=== PATIENT | female | born 1930 | race Caucasian/White ===

== ENCOUNTER → 2016-06-04 | Outpatient (CLI) | payer OTHER, MEDICAID ==
[2016-01-20 09:06] VITALS: BP 133/72
[2016-06-04 11:31] LABS: BASOPHILS # (AUTO) 0.1 X10^3/uL (0.0-0.1); BASOPHILS % (AUTO) 1.6 % (0.2-1.0); EOSINOPHILS # (AUTO) 0.1 x10^3/uL (0.0-0.2); EOSINOPHILS % (AUTO) 1.3 % (0.9-2.9); LYMPHOCYTES % (AUTO) 23.3 % (21.0-51.0); MEAN CORPUSCULAR HEMOGLOBIN 28.3 pg (27.0-34.0); MEAN CORPUSCULAR HGB CONC 33.3 g/dL (33.0-35.0); MONOCYTES # (AUTO) 0.6 x10^3/uL (0.3-0.8); MONOCYTES % (AUTO) 6.8 % (0.0-13.0); NEUTROPHILS # (AUTO) 5.8 x10^3/uL (2.2-4.8); PLATELET COUNT 260 X10^3/uL (150.0-450.0); RED BLOOD COUNT 4.59 X10^6/uL (3.5-5.4); RED CELL DISTRIBUTION WIDTH 14.7 % (11.6-16.5); WHITE BLOOD COUNT 8.7 X10^3/uL (3.6-10.0)
[2016-06-04 11:58] LABS: ALANINE AMINOTRANSFERASE 47 Units/L (12-78); ALBUMIN 3.8 g/dL (3.4-5.0); ALKALINE PHOSPHATASE 148 Units/L (46-116); ASPARTATE AMINO TRANSFERASE 33 Units/L (15-37); BLOOD UREA NITROGEN 16 mg/dL (7-18); CALCIUM 8.9 mg/dL (8.5-10.1); CARBON DIOXIDE 31.1 mmol/L (21-32); CHLORIDE 105 mmol/L (98-107); CHOL/HDL RATIO 3.5 (0.0-5.0); CHOLESTEROL 208 mg/dL (0-200); CREATININE 1.36 mg/dL (0.55-1.02); GLUCOSE 97 mg/dL (65-99); HDL CHOLESTEROL 59 mg/dL (40-60); SODIUM 143 mmol/L (136-145); TRIGLYCERIDES 105 mg/dL (0-150); TSH (3RD GENERATION) 0.093 uIU/mL (0.358-3.74); eGFR BLACK RACES 47 (>60); eGFR NON BLACK RACES 39 (>60)
== END ==
LOC: LAB 10:47
PROVIDERS: ATTEND Obstetrics & Gynecology Obstetrics
DX: E03.8 Other specified hypothyroidism (principal); I10 Essential (primary) hypertension
CPT/HCPCS: 36415; 80053; 80061; 84443; 85025

== ENCOUNTER → 2016-07-26 | Outpatient (CLI) | payer OTHER, MEDICAID ==
[2016-01-20 09:06] VITALS: BP 133/72
[2016-07-26 09:54] LABS: BASOPHILS # (AUTO) 0.1 X10^3/uL (0.0-0.1); BASOPHILS % (AUTO) 0.8 % (0.2-1.0); EOSINOPHILS # (AUTO) 0.2 x10^3/uL (0.0-0.2); EOSINOPHILS % (AUTO) 2.2 % (0.9-2.9); HEMATOCRIT 37.1 % (36.0-47.0); HEMOGLOBIN 12.1 g/dL (12.0-16.0); LYMPHOCYTES # (AUTO) 1.9 X10^3/uL (1.3-2.9); LYMPHOCYTES % (AUTO) 21.7 % (21.0-51.0); MEAN CORPUSCULAR HEMOGLOBIN 27.6 pg (27.0-34.0); MEAN CORPUSCULAR HGB CONC 32.7 g/dL (33.0-35.0); MEAN CORPUSCULAR VOLUME 84.7 fL (80.0-100.0); MEAN PLATELET VOLUME 7.7 fL (7.4-11.0); MONOCYTES # (AUTO) 0.7 x10^3/uL (0.3-0.8); MONOCYTES % (AUTO) 8.2 % (0.0-13.0); NEUTROPHILS # (AUTO) 5.9 x10^3/uL (2.2-4.8); NEUTROPHILS % (AUTO) 67.1 % (42.0-75.0); PLATELET COUNT 277 X10^3/uL (150.0-450.0); RED BLOOD COUNT 4.38 X10^6/uL (3.5-5.4); RED CELL DISTRIBUTION WIDTH 15.3 % (11.6-16.5); WHITE BLOOD COUNT 8.8 X10^3/uL (3.6-10.0)
[2016-07-26 10:30] LABS: ALANINE AMINOTRANSFERASE 40 Units/L (12-78); ALBUMIN 3.4 g/dL (3.4-5.0); ALKALINE PHOSPHATASE 143 Units/L (46-116); ASPARTATE AMINO TRANSFERASE 28 Units/L (15-37); BLOOD UREA NITROGEN 17 mg/dL (7-18); CALCIUM 8.9 mg/dL (8.5-10.1); CARBON DIOXIDE 29.6 mmol/L (21-32); CHLORIDE 105 mmol/L (98-107); CHOL/HDL RATIO 4.8 (0.0-5.0); CHOLESTEROL 247 mg/dL (0-200); CREATININE 1.39 mg/dL (0.55-1.02); GLUCOSE 91 mg/dL (65-99); HDL CHOLESTEROL 52 mg/dL (40-60); SODIUM 142 mmol/L (136-145); TOTAL PROTEIN 7.4 g/dL (6.4-8.2); TRIGLYCERIDES 136 mg/dL (0-150); eGFR BLACK RACES 46 (>60); eGFR NON BLACK RACES 38 (>60)
[2016-07-26 18:08] LABS: FREE T4 (FREE THYROXINE) 1.74 ng/dL (0.76-1.46)
== END ==
LOC: LAB 09:25
PROVIDERS: ATTEND Obstetrics & Gynecology Obstetrics
DX: E03.8 Other specified hypothyroidism (principal); I10 Essential (primary) hypertension; I48.91 Unspecified atrial fibrillation
CPT/HCPCS: 36415; 80053; 80061; 84439; 84443; 84481; 85025

== ENCOUNTER 2016-08-11 09:25 | Emergency (ER) | payer OTHER, MEDICAID ==
[2016-08-11 09:29] VITALS: BMI 21.9
--- NOTE | 2016-08-11 09:51 | DR.GENAD ---
HPI - PCP Primary Care Physician: BISI Chamberlain HPI Comment HPI Comment: HAD GI BLEED PREVIOUSLY. NO HISTORY OF HEMORRHOIDS. - Complaint/Symptoms Chief Complaint Doctors Comments: GI BLEEDING TODAY WHEN PATIENT BP, BLEED IN STOOL. TARRY STOOL. Chief Complaint:: PT. C/O WEAKNESS AND RECTAL BLEEDING. PT. HAD A BOWEL MOVEMENT THIS MORNING WHICH SHE SAYS WAS DARK AND TARRY AT FIRST BUT THEN BECAME BRIGHT RED IN COLOR. - Nurses notes reviewed Nurses Notes Review: Yes - Source History Provided: Patient - Mode of Arrival Mode of Arrival: Wheelchair - Timing Onset of Chief Complaint: 08/11/16 Came on: Suddenly - Duration Duration: Constant Duration: Hours PMH - PMH Past Medical History: Yes Past Medical History: Diabetes, Hypertension, Hyperthyroidism Past Surgical History: Yes Surgical History: Ortho Surgery - Family History History of Family Medical Conditions: Yes Family Medical History: Diabetes Mellitus - Social History Does patient currently use any type of tobacco product: No Have you used tobacco products in the last 12 months: No Type of Tobacco Use: None Does any household member use tobacco: No Alcohol Use: None Do you use any recreational Drugs:: No Lives With: Family Lives Where: Home - infectious screening In the last 2 months have you had wt loss of >10#?: NO Have you had fever, night sweats or hemotysis?: No Have you traveled outside the country in the last 6 months?: No Isolation: Standard ROS - Review of Systems Constitutional: No Symptoms Reported. negative: Chills, Fever, Weakness, Fatigue, Loss of Appetite Eyes: No Symptoms Reported. negative: Eye Pain, Blurred Vision, Discharge ENTM: No Symptoms Reported Respiratoy: No Symptoms Reported Cardiovascular: No Symptoms Reported Gastrointestinal/Abdominal: No Symptoms Reported Genitourinary: negative: Hematuria Neurological: Weakness Musculoskeletal: Muscle Pain Integumentary: Dryness Hematologic/Lymphatic: No Symptoms Reported Endocrine: negative: Flushing, Increased Thirst All Other Systems: Reviewed and Negative PE - Vital Signs Vitals: Temperature 97.6 F Pulse Rate 67 Respiratory Rate 17 Blood Pressure [Right Arm] 133/72 Blood Pressure [Left Arm] 148/69 Blood Pressure 152/80 O2 Sat by Pulse Oximetry 96 - General Limitations: No Limitations General Appearance: Alert - Head Head Exam: Normal Inspection - Eyes Eye exam: Normal Appearance - ENT ENT Exam: Normal Exam External Ear Exam: Normal External Inspection TM/Canal Exam: Bilateral Normal Nose Exam: Normal Nose Exam, Sinus Tenderness Mouth Exam: Normal Inspection Throat Exam: Normal Inspection MDM - Additional Information Additional Information Obtained From: Family - Differential Diagnosis Differential Diagnosis: FRACTURE, SRAIN, STRAIN CONTUSION, FRACTURE. Course - Treatment Treatment: SEE ORDERS - Education/Counseling Education/Counseling: Patient, Education Educated On: Treatment ROR - Labs Reviewed Laboratory Results Reviewed?: Yes Result Diagrams: 08/12/16 04:30 08/12/16 04:30 Laboratory: WBC 7.4 X10^3/uL (3.6-10.0) 08/11/16 10:10 RBC 4.21 X10^6/uL (3.5-5.4) 08/11/16 10:10 Hgb 11.8 g/dL (12.0-16.0) L 08/11/16 10:10 Hct 35.6 % (36.0-47.0) L 08/11/16 10:10 MCV 84.6 fL (80.0-100.0) 08/11/16 10:10 MCH 28.0 pg (27.0-34.0) 08/11/16 10:10 MCHC 33.2 g/dL (33.0-35.0) 08/11/16 10:10 RDW 15.4 % (11.6-16.5) 08/11/16 10:10 Plt Count 247 X10^3/uL (150.0-450.0) 08/11/16 10:10 MPV 8.1 fL (7.4-11.0) 08/11/16 10:10 Neut % 65.1 % (42.0-75.0) 08/11/16 10:10 Lymph % 24.5 % (21.0-51.0) 08/11/16 10:10 [place] % 7.2 % (0.0-13.0) 08/11/16 10:10 Eos % 2.0 % (0.9-2.9) 08/11/16 10:10 Baso % 1.2 % (0.2-1.0) H 08/11/16 10:10 Neut # 4.8 x10^3/uL (2.2-4.8) 08/11/16 10:10 Lymph # 1.8 X10^3/uL (1.3-2.9) 08/11/16 10:10 [place] # 0.5 x10^3/uL (0.3-0.8) 08/11/16 10:10 Eos # 0.1 x10^3/uL (0.0-0.2) 08/11/16 10:10 Baso # 0.1 X10^3/uL (0.0-0.1) 08/11/16 10:10 Absolute Nucleated RBC 0.1 /100WBC 08/11/16 10:10 INR Target Range - 08/11/16 10:10 INR 1.07 (0.8-1.3) 08/11/16 10:10 PTT 31.5 SECONDS (22.9-36.5) 08/11/16 10:10 PTT Comment - 08/11/16 10:10 Sodium 142 mmol/L (136-145) 08/11/16 10:10 Corrected Sodium TNP 08/11/16 10:10 Potassium 4.4 mmol/L (3.5-5.1) 08/11/16 10:10 Chloride 106 mmol/L (98-107) 08/11/16 10:10 Carbon Dioxide 26.5 mmol/L (21-32) 08/11/16 10:10 BUN 19 mg/dL (7-18) H 08/11/16 10:10 Creatinine 1.23 mg/dL (0.55-1.02) H 08/11/16 10:10 Est GFR (MDRD) Af Amer 53 (>60) L 08/11/16 10:10 Est GFR (MDRD) Non-Af 44 (>60) L 08/11/16 10:10 Glucose 94 mg/dL (65-99) 08/11/16 10:10 Calcium 8.7 mg/dL (8.5-10.1) 08/11/16 10:10 Corrected Calcium 9.3 mg/dL (8.5-10.1) 08/11/16 10:10 Total Bilirubin 0.40 mg/dL (0.2-1.0) 08/11/16 10:10 AST 29 Units/L (15-37) 08/11/16 10:10 ALT 51 Units/L (12-78) 08/11/16 10:10 Alkaline Phosphatase 142 Units/L (46-116) H 08/11/16 10:10 Total Protein 7.2 g/dL (6.4-8.2) 08/11/16 10:10 Albumin 3.3 g/dL (3.4-5.0) L 08/11/16 10:10 Globulin 3.9 g/dL (2.5-4.5) 08/11/16 10:10 Albumin/Globulin Ratio 0.8 Ratio (1.1-2.1) L 08/11/16 10:10 Stool Description Fob tube 08/11/16 10:32 Stl Occult Blood (IFOB) Positive (NEGATIVE) A 08/11/16 10:32 - XRAY XRAY Interpreted by: Radiologist XRAY Findings: REPORT NOTED AND DISCUSS WITH PATIENT. - Diagnosis Discharge Problem: GI bleeding Qualifiers: GI bleed type/associated pathology: unspecified gastrointestinal hemorrhage type Qualified Code(s): K92.2 - Gastrointestinal hemorrhage, unspecified - Discharge Plan Disposition: ADMITTED INPATIENT Condition: Stable - Follow ups/Referrals - Instructions
[2016-08-11] MEDS ORDERED: NS 500 ML IV 500 ML IV ONE (09:52)
[2016-08-11] MEDS: NS 1000 ML 1,000 ML IV SCH ×2 (10:13→22:28)
[2016-08-11 10:40] LABS: BASOPHILS # (AUTO) 0.1 X10^3/uL (0.0-0.1); BASOPHILS % (AUTO) 1.2 % (0.2-1.0); EOSINOPHILS # (AUTO) 0.1 x10^3/uL (0.0-0.2); HEMATOCRIT 35.6 % (36.0-47.0); HEMOGLOBIN 11.8 g/dL (12.0-16.0); LYMPHOCYTES # (AUTO) 1.8 X10^3/uL (1.3-2.9); LYMPHOCYTES % (AUTO) 24.5 % (21.0-51.0); MEAN CORPUSCULAR HGB CONC 33.2 g/dL (33.0-35.0); MEAN CORPUSCULAR VOLUME 84.6 fL (80.0-100.0); MEAN PLATELET VOLUME 8.1 fL (7.4-11.0); MONOCYTES # (AUTO) 0.5 x10^3/uL (0.3-0.8); MONOCYTES % (AUTO) 7.2 % (0.0-13.0); NEUTROPHILS # (AUTO) 4.8 x10^3/uL (2.2-4.8); NEUTROPHILS % (AUTO) 65.1 % (42.0-75.0); PLATELET COUNT 247 X10^3/uL (150.0-450.0); RED BLOOD COUNT 4.21 X10^6/uL (3.5-5.4); RED CELL DISTRIBUTION WIDTH 15.4 % (11.6-16.5); WHITE BLOOD COUNT 7.4 X10^3/uL (3.6-10.0)
[2016-08-11 10:54] LABS: ALANINE AMINOTRANSFERASE 51 Units/L (12-78); ALBUMIN 3.3 g/dL (3.4-5.0); ALKALINE PHOSPHATASE 142 Units/L (46-116); ASPARTATE AMINO TRANSFERASE 29 Units/L (15-37); BLOOD UREA NITROGEN 19 mg/dL (7-18); CALCIUM 8.7 mg/dL (8.5-10.1); CARBON DIOXIDE 26.5 mmol/L (21-32); CHLORIDE 106 mmol/L (98-107); COR CA(FOR HYPOALB) 9.3 mg/dL (8.5-10.1); CREATININE 1.23 mg/dL (0.55-1.02); GLUCOSE 94 mg/dL (65-99); SODIUM 142 mmol/L (136-145); TOTAL PROTEIN 7.2 g/dL (6.4-8.2); eGFR BLACK RACES 53 (>60); eGFR NON BLACK RACES 44 (>60)
--- NOTE | 2016-08-11 11:52 | CT ---
HISTORY: Abdominal pain and rectal bleeding Study: CT abdomen and pelvis without contrast Comparison: January 19, 2016 Technique: Multiple axial images of the abdomen and pelvis were obtained from the lung bases to the pubic symph ysis without the administration of IV contrast. Sagittal and coronal reformations were provided. Findings: Emphysematous changes and interstitial lung disease is visualized at the lung bases. There is a mi ldly increased attenuation of the liver parenchyma up to 100 Hounsfield units without focal liver ma ss. The spleen and pancreas and adrenal glands are unremarkable. There is an unchanged 5 millimeter calculus in the mid pole of the left kidney with adjacent scar. There is no hydronephrosis. There i s an approximately 3.25 centimeter cyst dorsally in the upper pole of the left kidney. There is a 3. 6 centimeter cyst ventrally from the lower pole of the right kidney. .. The gallbladder is mildly di stended with increased attenuation dependently. There is no biliary dilatation.. No significant mes enteric lymphadenopathy or stranding can be observed. No free fluid or free air is seen within the abdomen. The uterus appears to be absent. No bowel wall thickening or bowel dilatation is present. There is severe sigmoid diverticulosis without inflammatory changes demonstrated. There is artifact from a left hip prosthesis.. The urinary bladder is grossly unremarkable. The bony structures are grossly intact. IMPRESSION: 1. Abnormal attenuation of the liver compatible with hemochromatosis. This also may be caused by am iodarone therapy. 2. Sludge or tiny gallstones dependently in the gallbladder 3. Sigmoid diverticulosis 4. Renal cysts and left renal calculus without hydronephrosis Reported By:
[2016-08-11] MEDS ORDERED: LASIX PO PRN (12:24)
[2016-08-11 12:25] LABS: AMYLASE 55 Units/L (25-115); LIPASE 158 Units/L (73-393)
[2016-08-11] MEDS: PROTONIX INJ 40 MG VIAL 80 MG in NS 100 ML IV 80 ML IV SCH ×2 (12:28→22:21)
[2016-08-11] MEDS ORDERED: PROTONIX INJ 40 MG VIAL ONE (12:31)
[2016-08-11] MEDS ORDERED: NS 100 ML IV 100 ML IV ONE (12:31)
[2016-08-11 14:06] LABS: HEMATOCRIT 33.2 % (36.0-47.0); HEMOGLOBIN 10.9 g/dL (12.0-16.0)
[2016-08-11 18:30] LABS: HEMATOCRIT 35.3 % (36.0-47.0); HEMOGLOBIN 11.5 g/dL (12.0-16.0)
[2016-08-11 22:23] LABS: HEMATOCRIT 30.8 % (36.0-47.0); HEMOGLOBIN 10.3 g/dL (12.0-16.0)
[2016-08-12] MEDS: NS 1000 ML 1,000 ML IV SCH ×2 (00:33→20:05)
[2016-08-12 02:14] LABS: HEMATOCRIT 31.9 % (36.0-47.0); HEMOGLOBIN 10.6 g/dL (12.0-16.0)
[2016-08-12] MEDS: PROTONIX INJ 40 MG VIAL 80 MG in NS 100 ML IV 80 ML IV SCH ×4 (05:32→20:08)
[2016-08-12 06:10] LABS: BASOPHILS # (AUTO) 0.1 X10^3/uL (0.0-0.1); BASOPHILS % (AUTO) 0.6 % (0.2-1.0); EOSINOPHILS # (AUTO) 0.2 x10^3/uL (0.0-0.2); HEMATOCRIT 31.9 % (36.0-47.0); HEMOGLOBIN 10.7 g/dL (12.0-16.0); LYMPHOCYTES # (AUTO) 1.9 X10^3/uL (1.3-2.9); MEAN CORPUSCULAR HEMOGLOBIN 28.3 pg (27.0-34.0); MEAN CORPUSCULAR HGB CONC 33.5 g/dL (33.0-35.0); MEAN CORPUSCULAR VOLUME 84.4 fL (80.0-100.0); MEAN PLATELET VOLUME 8.1 fL (7.4-11.0); MONOCYTES # (AUTO) 0.6 x10^3/uL (0.3-0.8); MONOCYTES % (AUTO) 7.5 % (0.0-13.0); NEUTROPHILS # (AUTO) 5.7 x10^3/uL (2.2-4.8); NEUTROPHILS % (AUTO) 66.9 % (42.0-75.0); PLATELET COUNT 231 X10^3/uL (150.0-450.0); RED BLOOD COUNT 3.78 X10^6/uL (3.5-5.4); RED CELL DISTRIBUTION WIDTH 15.3 % (11.6-16.5); WHITE BLOOD COUNT 8.5 X10^3/uL (3.6-10.0)
[2016-08-12 06:21] LABS: ALANINE AMINOTRANSFERASE 42 Units/L (12-78); ALBUMIN 2.8 g/dL (3.4-5.0); ALKALINE PHOSPHATASE 119 Units/L (46-116); ASPARTATE AMINO TRANSFERASE 25 Units/L (15-37); BLOOD UREA NITROGEN 12 mg/dL (7-18); CALCIUM 8.2 mg/dL (8.5-10.1); CHLORIDE 110 mmol/L (98-107); CHOL/HDL RATIO 4.4 (0.0-5.0); CHOLESTEROL 201 mg/dL (0-200); COR CA(FOR HYPOALB) 9.2 mg/dL (8.5-10.1); CREATININE 1.02 mg/dL (0.55-1.02); GLUCOSE 88 mg/dL (65-99); HDL CHOLESTEROL 46 mg/dL (40-60); SODIUM 145 mmol/L (136-145); TOTAL PROTEIN 6.2 g/dL (6.4-8.2); TRIGLYCERIDES 112 mg/dL (0-150); eGFR BLACK RACES > 60 (>60); eGFR NON BLACK RACES 54 (>60)
[2016-08-12] MEDS: SYNTHROID 150 mcg TAB PO SCH (09:05)
[2016-08-12] MEDS: HYZAAR 50/12.5 MG PO SCH (09:06)
[2016-08-12] MEDS: CARDIZEM CD 240 MG PO SCH (09:06)
[2016-08-12] MEDS: CORDARONE TAB 200 MG PO SCH (09:08)
[2016-08-12] MEDS ORDERED: D5 LR 1000 ML 1,000 ML IV ONE (11:27)
[2016-08-12] MEDS ORDERED: DIPRIVAN VIAL 20 ML ONE (11:51)
[2016-08-12] MEDS ORDERED: ANUCORT-HC SUPP PR PRN (12:05)
[2016-08-13] MEDS: PROTONIX INJ 40 MG VIAL 80 MG in NS 100 ML IV 80 ML IV SCH (04:18)
[2016-08-13 05:50] LABS: ALANINE AMINOTRANSFERASE 39 Units/L (12-78); ALBUMIN 2.7 g/dL (3.4-5.0); ALKALINE PHOSPHATASE 121 Units/L (46-116); ASPARTATE AMINO TRANSFERASE 25 Units/L (15-37); BLOOD UREA NITROGEN 7 mg/dL (7-18); CALCIUM 8.7 mg/dL (8.5-10.1); CARBON DIOXIDE 26.7 mmol/L (21-32); CHLORIDE 107 mmol/L (98-107); COR CA(FOR HYPOALB) 9.7 mg/dL (8.5-10.1); CREATININE 0.95 mg/dL (0.55-1.02); GLUCOSE 84 mg/dL (65-99); SODIUM 143 mmol/L (136-145); TOTAL PROTEIN 6.2 g/dL (6.4-8.2); eGFR BLACK RACES > 60 (>60); eGFR NON BLACK RACES 59 (>60)
[2016-08-13 06:13] LABS: BASOPHILS % (AUTO) 0.6 % (0.2-1.0); EOSINOPHILS # (AUTO) 0.3 x10^3/uL (0.0-0.2); EOSINOPHILS % (AUTO) 3.6 % (0.9-2.9); HEMATOCRIT 33.7 % (36.0-47.0); HEMOGLOBIN 11.1 g/dL (12.0-16.0); LYMPHOCYTES % (AUTO) 24.4 % (21.0-51.0); MEAN CORPUSCULAR HEMOGLOBIN 27.8 pg (27.0-34.0); MEAN CORPUSCULAR HGB CONC 32.9 g/dL (33.0-35.0); MEAN CORPUSCULAR VOLUME 84.4 fL (80.0-100.0); MEAN PLATELET VOLUME 8.2 fL (7.4-11.0); MONOCYTES # (AUTO) 0.7 x10^3/uL (0.3-0.8); MONOCYTES % (AUTO) 8.2 % (0.0-13.0); NEUTROPHILS # (AUTO) 5.1 x10^3/uL (2.2-4.8); NEUTROPHILS % (AUTO) 63.2 % (42.0-75.0); PLATELET COUNT 236 X10^3/uL (150.0-450.0); RED BLOOD COUNT 3.99 X10^6/uL (3.5-5.4); RED CELL DISTRIBUTION WIDTH 15.1 % (11.6-16.5)
[2016-08-13] MEDS ORDERED: ANUCORT-HC SUPP PR SCH (09:00)
[2016-08-13] MEDS: SYNTHROID 150 mcg TAB PO SCH (09:13)
[2016-08-13] MEDS: NS 1000 ML 1,000 ML IV SCH (09:13)
[2016-08-13] MEDS: HYZAAR 50/12.5 MG PO SCH (09:13)
[2016-08-13] MEDS: CARDIZEM CD 240 MG PO SCH (09:13)
[2016-08-13] MEDS: CORDARONE TAB 200 MG PO SCH (09:14)
[2016-08-13 12:20] VITALS: BP 157/82
== END 2016-08-13 12:35 | disposition home or self-care (01) ==
LOC: ER 09:40 → MED/SURG 12:07
PROVIDERS: ADMIT Obstetrics & Gynecology Obstetrics; ATTEND Obstetrics & Gynecology Obstetrics
PROC: 0DJ08ZZ Inspection of Upper Intestinal Tract, Via Natural or Artificial Opening Endoscopic (ICD-10-PCS; principal; 2016-08-12 14:30)
DX: K92.2 Gastrointestinal hemorrhage, unspecified (principal); K29.60 Other gastritis without bleeding; K22.2 Esophageal obstruction; R94.4 Abnormal results of kidney function studies; K21.9 Gastro-esophageal reflux disease without esophagitis; I48.91 Unspecified atrial fibrillation; Z79.01 Long term (current) use of anticoagulants; R94.31 Abnormal electrocardiogram [ECG] [EKG]; E11.65 Type 2 diabetes mellitus with hyperglycemia; I10 Essential (primary) hypertension; E03.8 Other specified hypothyroidism; R26.89 Other abnormalities of gait and mobility; D64.89 Other specified anemias
CPT/HCPCS: 36415; 74176; 80053; 80061; 82150; 82270; 82728; 83690; 85014; 85018; 85025; 85610; 85730; 86850; 86900; 86901; 93005; 93010; 94760; 96365; 96367; 96374; 99100; 99282; 99284; A4222; C9113; A4217; G0378; J3490; J7120

== ENCOUNTER → 2016-08-27 | Outpatient (CLI) | payer OTHER, MEDICAID ==
[2016-08-13 12:20] VITALS: BP 157/82
[2016-08-27 09:59] LABS: ALANINE AMINOTRANSFERASE 43 Units/L (12-78); ALBUMIN 3.2 g/dL (3.4-5.0); ALKALINE PHOSPHATASE 134 Units/L (46-116); ASPARTATE AMINO TRANSFERASE 28 Units/L (15-37); BLOOD UREA NITROGEN 18 mg/dL (7-18); CARBON DIOXIDE 29.8 mmol/L (21-32); CHLORIDE 105 mmol/L (98-107); COR CA(FOR HYPOALB) 9.6 mg/dL (8.5-10.1); CREATININE 1.23 mg/dL (0.55-1.02); GLUCOSE 81 mg/dL (65-99); SODIUM 142 mmol/L (136-145); TOTAL PROTEIN 7.3 g/dL (6.4-8.2); TSH (3RD GENERATION) 0.452 uIU/mL (0.358-3.74); eGFR BLACK RACES 53 (>60); eGFR NON BLACK RACES 44 (>60)
== END ==
LOC: LAB 09:04
PROVIDERS: ATTEND Internal Medicine Cardiovascular Disease
DX: I48.91 Unspecified atrial fibrillation (principal)
CPT/HCPCS: 36415; 80053; 84443

== ENCOUNTER 2016-11-06 15:00 | Emergency (ER) | payer OTHER, MEDICAID ==
[2016-11-06 15:06] VITALS: BP 146/82; BMI 22.9
[2016-11-06] MEDS ORDERED: ZOFRAN INJ 4 MG VIAL IM ONE (15:18)
[2016-11-06] MEDS ORDERED: MORPHINE SULFATE INJ 4 MG IM ONE (15:18)
--- NOTE | 2016-11-06 15:18 | DR.GENAD ---
HPI - PCP Primary Care Physician: BISI - HPI Comment HPI Comment: PATIENT HAVING SEVERE PAIN. TD NOT UTD. - Complaint/Symptoms Chief Complaint Doctors Comments: FELL AT HOME COMING OUT OF BATH TUB TODAY BEFORE COMING TO ED. LOW BACK PAIN, LEFT ARM AND FOREARM PAIN WITH LACERATION.ON FOREARM. Chief Complaint:: PT STATES SHE FELL GETTING OUT OF THE BATH TUB. PT C/O LT FOREARM AND LOWER BACK PAIN. NOTED PT'S ARM TO BE SWOLLEN. - Nurses notes reviewed Nurses Notes Review: Yes - Source History Provided: Patient - Mode of Arrival Mode of Arrival: Wheelchair - Timing Onset of Chief Complaint: 11/06/16 Came on: Suddenly - Duration Duration: Constant Duration: Days - Severity Severity: Moderate PMH - PMH Past Medical History: Yes Past Medical History: Diabetes, Hypertension, Hyperthyroidism Past Surgical History: Yes Surgical History: Ortho Surgery - Family History History of Family Medical Conditions: Yes Family Medical History: Diabetes Mellitus - Social History Does any household member use tobacco: No Alcohol Use: None Do you use any recreational Drugs:: No Lives With: Alone Lives Where: Home - infectious screening In the last 2 months have you had wt loss of >10#?: NO Have you had fever, night sweats or hemotysis?: No Have you traveled outside the country in the last 6 months?: No Isolation: Standard ROS - Review of Systems Constitutional: No Symptoms Reported Eyes: No Symptoms Reported ENTM: No Symptoms Reported Respiratoy: No Symptoms Reported Cardiovascular: No Symptoms Reported Gastrointestinal/Abdominal: No Symptoms Reported Genitourinary: No Symptoms Reported Neurological: No Symptoms Reported Musculoskeletal: Back Pain, Joint Pain, Joint Swelling, Muscle Pain, Left, Back , Shoulder Integumentary: Change in Color, Other (LACERATION LEFT FOREARM.) Hematologic/Lymphatic: No Symptoms Reported Endocrine: No Symptoms Reported All Other Systems: Reviewed and Negative PE - Vital Signs Vitals: Temperature 98.3 F Pulse Rate 83 Respiratory Rate 18 Blood Pressure [Right Arm] 169/79 Blood Pressure [Left Arm] 157/82 Blood Pressure 146/82 O2 Sat by Pulse Oximetry 98 - General Limitations: No Limitations General Appearance: Alert - Head Head Exam: Normal Inspection - Eyes Eye exam: Normal Appearance - ENT ENT Exam: Normal External Ear Exam External Ear Exam: Normal External Inspection TM/Canal Exam: Bilateral Normal Nose Exam: Normal Nose Exam Mouth Exam: Normal Inspection Throat Exam: Normal Inspection - Neck Neck Exam: Normal Inspection - Chest Chest Inspection: Symmetric Chest Wall Rise - Respiratory Respiratory Exam: Normal Lung Sounds Bilat Respiratory Exam: Bilateral Rhonchi, Lower Rhonchi - Cardiovascular Cardiovascular Exam: Regular Rate, Normal Rhythm, Normal Heart Sounds - Abdominal Exam Abdominal Exam: Normal Bowel Sounds, Soft. negative: Tenderness - Extremities Extremities Exam: Tenderness (LEFT ARM AND FOREARM.), Joint Swelling (LT WRIST AND ELBOW.) - Back Back Exam: Vertebral Tenderness (LOWER BACK) - Neurologic Neurological Exam: Alert, Oriented X3 - Psychiatric Psychiatric Exam: Anxious - Skin Skin Exam: Erythema, Other (3CM LAC LT FOREARM.) MDM - Additional Information Additional Information Obtained From: Old Records (FRACTURE LT FOREARM, SONTUSION LT FORARM AND LT ARM, STRAIN LOWER BACK.), Family Course - Treatment Treatment: SEE ORDERS. IM MORPHIN ANR ZOFRAN IM IN ED. PAIN IMPROVING. - Consultation Consultation Comments: DISCUSS PATIENT WITH DR. SMITH. HE WILL SEE HER IN THE OFFICE TUESDAY. - Education/Counseling Education/Counseling: Patient, Family, Education Educated On: Treatment, Diagnosis, Needs for Follow Up ROR - XRAY XRAY Interpreted by: Radiologist XRAY Findings: REPORT DISCUSS WITH PATIENT AND HER FAMILY. Procedures - Laceration/Wound Repair Left Wrist Wound Length (cm): 3 Wound's Depth, Shape: Linear Wound Explored: clean Irrigated w/ Saline (ccs): 500 Anesthesia: 1% Lidocaine Volume Anesthetic (ccs): 2 Wound Repaired With: sutures Suture Size/Type: 4:0, [place] Number of Sutures: 7 Layer Closure?: No Sterile Dressing Applied?: Yes Splint Applied?: Yes Sling Applied?: Yes - Diagnosis Discharge Problem: Open fracture of left forearm Qualifiers: Encounter type: initial encounter Open fracture type: open type I or II Qualified Code(s): S52.92XB - Unspecified fracture of left forearm, initial encounter for open fracture type I or II Lumbar back pain Qualifiers: Chronicity: acute Back pain laterality: left Sciatica presence: without sciatica Qualified Code(s): M54.5 - Low back pain Contusion of left arm Qualifiers: Encounter type: initial encounter Qualified Code(s): S40.022A - Contusion of left upper arm, initial encounter - Discharge Plan Disposition: 01 HOME, SELF-CARE Condition: Stable Prescriptions: Oxycodone/Acet 5 mg/325 mg [PERCOCET 5/325 MG *] 1 tab PO Q8H PRN #12 tab PRN Reason: Severe Pain - Follow ups/Referrals Follow ups/Referrals: SEBASTIEN MATHEWS [Primary Care Provider] - 3 days RAMY SMITH [STAFF PHYSICIAN] - 11/08/16 - Instructions Instructions: Forearm Fracture With Rehab-SportsMed, Back Pain, Adult, Easy-to- Read, Laceration Care, Adult, [id number], Low Back Strain With Rehab-SportsMed Additional Instructions: RETURN TO ED IF WORSE.
[2016-11-06] MEDS ORDERED: MORPHINE SULFATE INJ 4 MG ONE (15:32)
[2016-11-06] MEDS ORDERED: ZOFRAN INJ 4 MG VIAL ONE (15:32)
--- NOTE | 2016-11-06 16:46 | RAD ---
HISTORY: Left arm pain. Comparison: None. EXAM: AP and lateral views of the left humerus. Findings: The exam demonstrates diffuse osteopenia of the left humerus without evidence for a displaced humeral fracture or humeral head dislocation on this examination. 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 The AC joint is intact without widening or separation. No destructive lytic bony lesion o r process is evident on the exam. Impression: Grossly negative humeral radiographic exam. Reported By:
--- NOTE | 2016-11-06 16:48 | RAD ---
History: Left arm pain. Distal ulnar fracture. Exam: Two view series of the left forearm bones demonstrates a complete, transverse, left distal ulna r diaphyseal fracture with diffuse adjacent soft tissue swelling edema observed. The DRUJ is intact. No elbow dislocation is seen. 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 There is advanced/severe 1st CMC joint DJD also observed. No o ther fracture or other acute bony injury is identified. Impression: Transverse, complete, left distal ulnar diaphyseal fracture. Reported By:
--- NOTE | 2016-11-06 17:03 | CT ---
HISTORY: Status post fall with low back pain Study: CT lumbar spine without contrast Comparison: August 11, 2016 Technique: Multiple axial images of the lumbar spine were obtained from the thoracolumbar junction t o the sacrum without the administration of IV contrast. Sagittal and coronal reformats were performe d and reviewed. AEC was utilized. Findings: No acute cortical disruption is identified. There is preservation of vertebral body height other than an incidental chronic Schmorl node along the superior endplate of L3. There is multilevel discogenic degenerative disease and facet arthropathy with grade 1 retrolisthesis of L1 on L2 and anterolisthes is of L4 on L5. Interspinous facet DJD is noted as well. There is mild dextroscoliosis. There is gene ralized osteopenia without a focal destructive osseous lesion. There is a sclerotic lesion along the right L2 vertebral body favored to represent a benign bone island in the absence of known malignancy. There is basilar pulmonary interstitial thickening. Colonic diverticulosis is noted. There is diffuse aortic atherosclerosis. Bilateral renal cysts are noted. There is left renal cortical nephrocalcinos is. There are equivocal stones versus sludge within the gallbladder. The liver is again noted to be h yperdense with differential considerations as previously described. A cardiac pacing device is noted. IMPRESSION: Chronic changes as above without acute radiographic abnormality. Reported By:
[2016-11-06] MEDS ORDERED: STERILE WATER IRRIGATION IR ONE (18:07)
[2016-11-06] MEDS ORDERED: ADACEL TDaP IM ONE ×2 (18:49→18:50)
[2016-11-06] MEDS ORDERED: NEOSPORIN OINT ONE (18:52)
== END 2016-11-06 19:58 | disposition home or self-care (01) ==
LOC: ER 15:38
PROC: 0XQH0ZZ Repair Left Wrist Region, Open Approach (ICD-10-PCS; principal; 2016-11-06)
DX: S52.92XB Unspecified fracture of left forearm, initial encounter for open fracture type I or II (principal); S51.812A Laceration without foreign body of left forearm, initial encounter; S40.022A Contusion of left upper arm, initial encounter; M54.5 Low back pain; W19.XXXA Unspecified fall, initial encounter; Y92.009 Unspecified place in unspecified non-institutional (private) residence as the place of occurrence of the external cause
CPT/HCPCS: 12002; 72131; 73060; 73090; 90471; 96372; 99283; A4217; J2270; J2405

== ENCOUNTER → 2016-11-08 | Outpatient (CLI) | payer OTHER, MEDICAID ==
[2016-11-06 15:06] VITALS: BP 146/82
[2016-11-08 16:30] LABS: BASOPHILS # (AUTO) 0.1 X10^3/uL (0.0-0.1); EOSINOPHILS # (AUTO) 0.2 x10^3/uL (0.0-0.2); HEMATOCRIT 33.9 % (36.0-47.0); HEMOGLOBIN 11.2 g/dL (12.0-16.0); LYMPHOCYTES # (AUTO) 1.5 X10^3/uL (1.3-2.9); LYMPHOCYTES % (AUTO) 19.2 % (21.0-51.0); MEAN CORPUSCULAR HEMOGLOBIN 28.2 pg (27.0-34.0); MEAN CORPUSCULAR HGB CONC 33.2 g/dL (33.0-35.0); MEAN CORPUSCULAR VOLUME 84.9 fL (80.0-100.0); MEAN PLATELET VOLUME 7.8 fL (7.4-11.0); MONOCYTES # (AUTO) 0.7 x10^3/uL (0.3-0.8); MONOCYTES % (AUTO) 8.5 % (0.0-13.0); NEUTROPHILS # (AUTO) 5.4 x10^3/uL (2.2-4.8); NEUTROPHILS % (AUTO) 68.3 % (42.0-75.0); PLATELET COUNT 277 X10^3/uL (150.0-450.0); RED BLOOD COUNT 3.99 X10^6/uL (3.5-5.4); RED CELL DISTRIBUTION WIDTH 15.6 % (11.6-16.5); WHITE BLOOD COUNT 7.9 X10^3/uL (3.6-10.0)
[2016-11-08 16:48] LABS: ALANINE AMINOTRANSFERASE 38 Units/L (12-78); ALKALINE PHOSPHATASE 141 Units/L (46-116); ASPARTATE AMINO TRANSFERASE 27 Units/L (15-37); BLOOD UREA NITROGEN 18 mg/dL (7-18); CALCIUM 8.6 mg/dL (8.5-10.1); CHLORIDE 107 mmol/L (98-107); COR CA(FOR HYPOALB) 9.4 mg/dL (8.5-10.1); CREATININE 1.35 mg/dL (0.55-1.02); GLUCOSE 99 mg/dL (65-99); SODIUM 141 mmol/L (136-145); TOTAL PROTEIN 6.6 g/dL (6.4-8.2); eGFR BLACK RACES 48 (>60); eGFR NON BLACK RACES 39 (>60)
[2016-11-08 17:18] LABS: ERYTHROCYTE SEDIMENTATION RATE 47 MM/HOUR (0-20)
== END | disposition home or self-care (01) | DRG 951 ==
LOC: LAB 15:58
PROVIDERS: ATTEND Orthopaedic Surgery
DX: Z01.818 Encounter for other preprocedural examination (principal); S52.209B Unspecified fracture of shaft of unspecified ulna, initial encounter for open fracture type I or II; W19.XXXA Unspecified fall, initial encounter
CPT/HCPCS: 36415; 80053; 85025; 85652; 86140

== ENCOUNTER → 2016-11-12 | Outpatient (CLI) | payer OTHER, MEDICAID ==
[2016-11-06 15:06] VITALS: BP 146/82
[2016-11-12 12:03] LABS: BASOPHILS # (AUTO) 0.1 X10^3/uL (0.0-0.1); BASOPHILS % (AUTO) 0.9 % (0.2-1.0); EOSINOPHILS # (AUTO) 0.2 x10^3/uL (0.0-0.2); EOSINOPHILS % (AUTO) 1.9 % (0.9-2.9); HEMATOCRIT 35.5 % (36.0-47.0); HEMOGLOBIN 11.7 g/dL (12.0-16.0); LYMPHOCYTES # (AUTO) 1.7 X10^3/uL (1.3-2.9); LYMPHOCYTES % (AUTO) 17.4 % (21.0-51.0); MEAN CORPUSCULAR HEMOGLOBIN 27.7 pg (27.0-34.0); MEAN CORPUSCULAR VOLUME 83.9 fL (80.0-100.0); MEAN PLATELET VOLUME 7.7 fL (7.4-11.0); MONOCYTES # (AUTO) 0.7 x10^3/uL (0.3-0.8); MONOCYTES % (AUTO) 7.8 % (0.0-13.0); PLATELET COUNT 293 X10^3/uL (150.0-450.0); RED BLOOD COUNT 4.22 X10^6/uL (3.5-5.4); RED CELL DISTRIBUTION WIDTH 15.2 % (11.6-16.5); WHITE BLOOD COUNT 9.7 X10^3/uL (3.6-10.0)
[2016-11-12 12:38] LABS: ERYTHROCYTE SEDIMENTATION RATE 46 MM/HOUR (0-20)
== END ==
LOC: LAB 11:44
PROVIDERS: ATTEND Orthopaedic Surgery
DX: S52.209B Unspecified fracture of shaft of unspecified ulna, initial encounter for open fracture type I or II (principal); X58.XXXA Exposure to other specified factors, initial encounter
CPT/HCPCS: 36415; 85025; 85652; 86140

== ENCOUNTER → 2016-11-25 | Outpatient (CLI) | payer OTHER, MEDICAID | LOC: RAD 14:17 | PROVIDERS: ATTEND Obstetrics & Gynecology Obstetrics | DX: R53.83 Other fatigue (principal) | CPT/HCPCS: 93306 ==

== ENCOUNTER → 2016-11-29 | Outpatient (CLI) | payer OTHER, MEDICAID ==
[2016-11-06 15:06] VITALS: BP 146/82
[2016-11-29 14:34] LABS: BASOPHILS # (AUTO) 0.1 X10^3/uL (0.0-0.1); BASOPHILS % (AUTO) 1.2 % (0.2-1.0); EOSINOPHILS # (AUTO) 0.1 x10^3/uL (0.0-0.2); EOSINOPHILS % (AUTO) 1.8 % (0.9-2.9); HEMOGLOBIN 11.7 g/dL (12.0-16.0); LYMPHOCYTES # (AUTO) 1.7 X10^3/uL (1.3-2.9); LYMPHOCYTES % (AUTO) 20.6 % (21.0-51.0); MEAN CORPUSCULAR HEMOGLOBIN 27.9 pg (27.0-34.0); MEAN CORPUSCULAR HGB CONC 33.4 g/dL (33.0-35.0); MEAN CORPUSCULAR VOLUME 83.5 fL (80.0-100.0); MEAN PLATELET VOLUME 8.5 fL (7.4-11.0); MONOCYTES # (AUTO) 0.5 x10^3/uL (0.3-0.8); MONOCYTES % (AUTO) 6.6 % (0.0-13.0); NEUTROPHILS # (AUTO) 5.6 x10^3/uL (2.2-4.8); NEUTROPHILS % (AUTO) 69.8 % (42.0-75.0); PLATELET COUNT 259 X10^3/uL (150.0-450.0); RED BLOOD COUNT 4.19 X10^6/uL (3.5-5.4); RED CELL DISTRIBUTION WIDTH 15.3 % (11.6-16.5); WHITE BLOOD COUNT 8.1 X10^3/uL (3.6-10.0)
--- NOTE | 2016-11-29 16:47 | RAD ---
Chest PA andLateral Indication: Cough. Comparison: May 23, 2014 radiograph. Findings: There is no pneumothorax or effusion. There is cardiomegaly with peribronchial thickening, with vague opacity in the right lung base. Impression: Cardiomegaly is COPD change. Chronic opacity right lung base likely scarring. Followup wi th PA and lateral chest if symptoms persist to exclude developing pneumonia. Reported By:
== END | disposition home or self-care (01) | DRG 204 ==
LOC: LAB 11:53
PROVIDERS: ATTEND Obstetrics & Gynecology Obstetrics
DX: R05 Cough (principal); I51.7 Cardiomegaly
CPT/HCPCS: 36415; 71020; 85025

== ENCOUNTER → 2017-04-27 | Outpatient (CLI) | payer OTHER, MEDICAID ==
[2017-04-27 12:15] LABS: ALANINE AMINOTRANSFERASE 26 Units/L (12-78); ALBUMIN 3.6 g/dL (3.4-5.0); ALKALINE PHOSPHATASE 157 Units/L (46-116); ASPARTATE AMINO TRANSFERASE 20 Units/L (15-37); BLOOD UREA NITROGEN 14 mg/dL (7-18); CALCIUM 9.1 mg/dL (8.5-10.1); CHLORIDE 103 mmol/L (98-107); CREATININE 1.11 mg/dL (0.55-1.02); SODIUM 141 mmol/L (136-145); TOTAL PROTEIN 7.9 g/dL (6.4-8.2); eGFR BLACK RACES 60 (>60); eGFR NON BLACK RACES 49 (>60)
== END ==
LOC: LAB 11:40
PROVIDERS: ATTEND Internal Medicine Cardiovascular Disease
DX: I48.91 Unspecified atrial fibrillation (principal)
CPT/HCPCS: 36415; 80053

== ENCOUNTER → 2017-06-30 | Outpatient (CLI) | payer OTHER, MEDICAID ==
--- NOTE | 2017-06-30 16:40 | RAD ---
HISTORY: Left hip pain. Status post fall. Study: Left hip: Two views Comparison: None Findings: Moderate osteopenia is noted. The pelvic ring is intact. The pubic rami are intact. There is a lef t hip prosthesis is present. The femoral portion is imbedded in methacrylate. No acute bony abnorma lities are identified. Moderate degenerative changes present in the right hip. IMPRESSION: 1. A left hip prosthesis is present. No complicating features are noted. 2. No acute bony abnormalities are identified. Reported By:
== END ==
LOC: RAD 15:27
PROVIDERS: ATTEND Obstetrics & Gynecology Obstetrics
DX: M25.551 Pain in right hip (principal); E88.89 Other specified metabolic disorders
CPT/HCPCS: 73501